=== PATIENT | male | born 1955 | race Caucasian/White ===

== ENCOUNTER → 2017-03-23 | Outpatient (CLI) | payer OTHER ==
[~2017-03-23] MED LIST: /WARF25TA OR; ACET65TA OR; BACT800T5 PO; CALCTAB28 PO; CRANBERRY PO; FISH1000 OR; FISH1000 PO; GARLPOW PO; MAGNESIUM PO; MULTIVIT PO; No Historical Meds; PERC5TAB6 PO; PERC5TAB8 OR; PYRI200T5 PO; SUPECAP24 PO; VITA100066 PO; VITAMIN B COMPLE1 OR; VITAMIN D PO; VITMTA PO; ZINC PO; [UNRECOGNIZED DRUG - CODE] PO; [UNRECOGNIZED DRUG - MIXTURE] PO; cranberry
--- NOTE | 2017-03-28 11:00 | SLEEPCENT ---
DATE OF STUDY: 03/23/2017 ORDERING PROVIDER: Ambar Anderson NP Nocturnal polysomnography was performed for evaluation of sleep apnea syndrome symptoms in this patient with a history of excessive somnolence and nonrestorative sleep. 7 hours and 32 minutes of data were reviewed. There were 379 minutes of sleep identified. Sleep latency was mildly prolonged at 17 minutes. Rapid eye movement (REM) latency was normal at 62 minutes. Sleep architecture showed fragmentation. There were three REM periods appreciated. Overall sleep efficiency was 85%. The patient's electrocardiogram (EKG) showed a sinus rhythm with an average heart rate of 60 beats per minute and occasional PVCs were seen. Electroencephalogram (EEG) showed some coarsening in background. Otherwise, normal waveforms for awake and sleep. There were 46 respiratory events identified of 10 seconds in duration or greater for an apnea-hypopnea index of 7.3. The events were primarily obstructive, not exclusive to sleep stage, mostly associated with supine posture. Arousals from respiratory events occurred 3.5 times per hour, and oxygen desaturations were seen into the upper 80s. There was some limb activity, but arousals from limb events were few, and remaining measures of sleep physiology were normal. IMPRESSION: Mild positional obstructive sleep apnea syndrome (G47.33). Apnea-hypopnea index 7.3. RECOMMENDATION: Sleep position retraining for avoidance of the supine posture is recommended at minimum. If symptoms persist, referral back to the sleep disorder center for pressure therapy would be reasonable. In the interim, alcohol and sedative avoidance should be practiced and caution exercised during the operation of motor vehicles.
== END ==
LOC: M SLEEP 19:26
PROVIDERS: ATTEND Nurse Practitioner Adult Health
DX: G47.30 Sleep apnea, unspecified (principal)

== ENCOUNTER → 2017-04-27 | Outpatient (CLI) | payer OTHER ==
--- NOTE | 2017-05-03 17:29 | SLEEPCENT ---
DATE OF PROCEDURE: 04/27/2017 ORDERED BY: Ambar Anderson Nocturnal polysomnography was performed for the titration of pressure therapy in this patient with obstructive sleep apnea syndrome. Apnea hypopnea index of 7.3. For testing the patient was fit with a [employer] full face mask of medium size. 4 cm of water pressure were applied to the circuit and the light were extinguished 7 hours and 30 minutes of data were reviewed. There were 381 minutes of sleep identified. Sleep latency was short at 4.5 minutes. Rapid eye movement (REM) latency was normal at 95 minutes. Sleep architecture improved with optimal pressure therapy. There were three REM periods appreciated and evidence of REM rebound late in the study. Overall sleep efficiency was 85.8%. Patient's EKG showed a sinus rhythm with an average heart rate of 56 beats per minute. EEG showed normal wave forms for wake and sleep. Respiratory events were best palliated with CPAP at a pressure of +7. Remaining measures of sleep physiology were normal. IMPRESSION: Obstructive sleep apnea syndrome (G47.33). RECOMMENDATIONS: Nightly use of pressure, 7 cm of water.
== END ==
LOC: M SLEEP 19:19
PROVIDERS: ATTEND Nurse Practitioner Adult Health
DX: G47.33 Obstructive sleep apnea (adult) (pediatric) (principal)